=== PATIENT | male | born 1950 | race Asian ===

== ENCOUNTER 2018-11-19 09:21 | Inpatient (IN) | payer MEDICARE, OTHER ==
[~2018-11-19] VITALS: Ht 172.7 cm; Wt 77.1 kg
[2018-11-19 09:40] VITALS: BP 98/61
--- NOTE | 2018-11-19 09:47 | NUR ---
ED Nurse Note: Patient brought in by ambulance from street; Patient admitted to drinking alcohol today. Patient drowsy, but open his eyes when RN called his name. Patient knows his name, , place and year. Patient able to communicate with RN. Regular, unlabored breathing noted. NO SOB or dyspnea noted. Patient has cough with white phlegm. Placed patient on awake overnight monitor. Reports no hx of A-fib. Reports no CP. IV to right AC 18g without redness, swelling or tenderness noted. Patient taken to CT scan. Addendum: 11/19/18 at 0956 by ISAEL ED Nurse Note: Reports no vomiting or BM with any blood or dark colored.
[2018-11-19 10:02] LABS: HEMATOCRIT 39.8 % (42.0-52.0); HEMOGLOBIN 13.5 G/DL (14.2-18.0); MEAN CORPUSCULAR VOLUME 111 FL (80-99); PLATELET COUNT 99 K/UL (150-450); RED BLOOD COUNT 3.57 M/UL (4.70-6.10); RED CELL DISTRIBUTION WIDTH 11.9 % (11.6-14.8)
--- NOTE | 2018-11-19 10:11 | NUR ---
ED Nurse Note: Patient returned from CT scan. Educated patient to use urinal at bedside and call RN using call button if he needs to be OOB. Bed in lowest position. Call light within reach.
--- NOTE | 2018-11-19 10:13 | Diagnostic Imaging Report ---
Indications: Altered mental status Technique: Spiral acquisitions obtained through the brain. Angled axial and coronal 5 x 5 mm slices were reconstructed. Total dose length product 1382.95 mGycm. CTDI vol(s) 70.38 mGy. Dose reduction achieved using automated exposure control Comparison: None. Findings: There is age-related enlargement of the ventricles and extra axial CSF spaces. No acute intracranial hemorrhage or edema. No mass effect or midline shift. Normal hyde-white differentiation. There is inward displacement of the medial orbital dubois bilaterally. This may be developmental or posttraumatic. Visualized orbits are unremarkable. The mastoids are clear Impression: Age-related volume loss Negative for acute intracranial bleed or mass effect The CT scanner at [facility] is accredited by the [employer] and the scans are performed using protocols designed to limit radiation exposure to as low as reasonably achievable to attain images of sufficient resolution adequate for diagnostic evaluation.
[2018-11-19 10:21] LABS: ANION GAP 14 mmol/L (5-15); BLOOD UREA NITROGEN 14 mg/dL (7-18); CALCIUM 8.4 MG/DL (8.5-10.1); CARBON DIOXIDE 25 MMOL/L (21-32); CHLORIDE 106 MMOL/L (98-107); CREATININE 0.8 MG/DL (0.55-1.30); POTASSIUM 3.4 MMOL/L (3.5-5.1); SODIUM 145 MMOL/L (136-145)
[2018-11-19 10:31] LABS: ALANINE AMINOTRANSFERASE 58 U/L (12-78); ALBUMIN 3.2 G/DL (3.4-5.0); ALBUMIN/GLOBULIN RATIO 0.8 (1.0-2.7); ALKALINE PHOSPHATASE 118 U/L (46-116); ASPARTATE AMINO TRANSFERASE 242 U/L (15-37); BILIRUBIN,TOTAL 1.4 MG/DL (0.2-1.0)
[2018-11-19 10:32] LABS: BILIRUBIN,DIRECT 0.6 MG/DL (0.0-0.3)
[2018-11-19 10:56] VITALS: BP 105/71
--- NOTE | 2018-11-19 10:57 | NUR ---
ED Nurse Note: Patient sleeping in bed.
--- NOTE | 2018-11-19 12:00 | NUR ---
ED Nurse Note: ERMD NOTIFIED that patient's HR remains 125 with A-fib after 1L IV fluids. Patient is sleeping in bed. Reports no CP, SOB or dsypnea.
[2018-11-19] MEDS ORDERED: dilTIAZem HCl 25mg/5ml Inj IVP ONE (12:15)
[2018-11-19 13:10] VITALS: BP 94/71
--- NOTE | 2018-11-19 14:00 | NUR ---
ED Nurse Note: Provided sandwiches and juice. Patient tolerated oral intake without difficutly.
--- NOTE | 2018-11-19 14:29 | Emergency Room Report ---
History of Present Illness General Chief Complaint: Altered Level of Consciousness Source: Patient, EMS Present Illness HPI This patient is brought in by EMS from the street. He was intoxicated and altered and EMS was called by a bystander. The patient states he has generalized weakness. He admits to alcohol use. He is begging to stay in the hospital because he does not feel well. He denies chest pain or shortness of breath. He denies abdominal pain. He has no other complaints. Allergies: Coded Allergies: No Known Allergies (Unverified , 11/19/18) Patient History Past Medical History: none, see triage record Social History: Reports: alcohol use - Hx of heavy ETOH; Denies: smoking, drug use Nursing Documentation-[facility] Past Medical History: No Stated History Review of Systems All Other Systems: negative except mentioned in HPI Physical Exam Vital Signs Date Time Temp Pulse Resp B/P (MAP) Pulse Ox O2 Delivery O2 Flow Rate FiO2 11/19/18 09:15 98.6 122 18 98/67 (77) 95 Room Air Sp02 EP Interpretation: reviewed, normal General Appearance: no apparent distress, alert, GCS 15, non-toxic Head: normocephalic, atraumatic Eyes: bilateral eye normal inspection, bilateral eye PERRL ENT: hearing grossly normal, normal pharynx, no angioedema, normal voice Neck: full range of motion, supple/symm/no masses Respiratory: chest non-tender, lungs clear, normal breath sounds, no respiratory distress, no retraction, no accessory muscle use, speaking full sentences Cardiovascular #1: no edema, tachycardia, irregularly irregular Gastrointestinal: normal bowel sounds, non tender, soft, non-distended, no guarding, no rebound Rectal: deferred Musculoskeletal: back normal, gait/station normal, normal range of motion, non- tender Neurologic: alert, oriented x3, responsive, motor strength/tone normal, sensory intact, speech normal Psychiatric: judgement/insight normal, memory normal, mood/affect normal, no suicidal/homicidal ideation Medical Decision Making Diagnostic Impression: Primary Impression: Atrial fibrillation with RVR Additional Impressions: New DX A.FIB Homelessness ETOH abuse EtOH dependence ER Course This patient has a history of alcohol abuse and dependence. He presents intoxicated. He is found to have atrial fibrillation with a rapid ventricular response. He states he has no history of atrial fibrillation, although I suspect this patient does not see any type of physician regularly. Patient was given aggressive IV fluid resuscitation and IV diltiazem. He did have improvement in his A. fib with RVR. He is requesting evaluation by [facility] renal social worker. I feel that given the patient's age and new diagnosis of atrial fibrillation with a rapid ventricular rate that he should be on a rate control medication and also at least be in a fci situation. The patient is admitted for further monitoring of his atrial fibrillation and evaluation by social work. Laboratory Tests Test 11/19/18 09:44 White Blood Count 9.0 K/UL (4.8-10.8) Red Blood Count 3.57 M/UL (4.70-6.10) L Hemoglobin 13.5 G/DL (14.2-18.0) L Hematocrit 39.8 % (42.0-52.0) L Mean Corpuscular Volume 111 FL (80-99) H Mean Corpuscular Hemoglobin 37.9 PG (27.0-31.0) H Mean Corpuscular Hemoglobin Concent 34.0 G/DL (32.0-36.0) Red Cell Distribution Width 11.9 % (11.6-14.8) Platelet Count 99 K/UL (150-450) L Mean Platelet Volume 7.3 FL (6.5-10.1) Neutrophils (%) (Auto) % (45.0-75.0) Lymphocytes (%) (Auto) % (20.0-45.0) Monocytes (%) (Auto) % (1.0-10.0) Eosinophils (%) (Auto) % (0.0-3.0) Basophils (%) (Auto) % (0.0-2.0) Differential Total Cells Counted 100 Neutrophils % (Manual) 52 % (45-75) Lymphocytes % (Manual) 43 % (20-45) Monocytes % (Manual) 5 % (1-10) Eosinophils % (Manual) 0 % (0-3) Basophils % (Manual) 0 % (0-2) Band Neutrophils 0 % (0-8) Platelet Estimate Decreased L Platelet Morphology Normal Macrocytosis 1+ Sodium Level 145 MMOL/L (136-145) Potassium Level 3.4 MMOL/L (3.5-5.1) L Chloride Level 106 MMOL/L (98-107) Carbon Dioxide Level 25 MMOL/L (21-32) Anion Gap 14 mmol/L (5-15) Blood Urea Nitrogen 14 mg/dL (7-18) Creatinine 0.8 MG/DL (0.55-1.30) Estimate Glomerular Filtration Rate > 60 mL/min (>60) Glucose Level 74 MG/DL (74-106) Calcium Level 8.4 MG/DL (8.5-10.1) L Total Bilirubin 1.4 MG/DL (0.2-1.0) H Direct Bilirubin 0.6 MG/DL (0.0-0.3) H Aspartate Amino Transferase (AST) 242 U/L (15-37) H Alanine Aminotransferase (ALT) 58 U/L (12-78) Alkaline Phosphatase 118 U/L (46-116) H Total Protein 7.0 G/DL (6.4-8.2) Albumin 3.2 G/DL (3.4-5.0) L Globulin 3.8 g/dL Albumin/Globulin Ratio 0.8 (1.0-2.7) L Serum Alcohol 340 mg/dL EKG Diagnostic Results Rate: tachycardiac Rhythm: other - A.fib ST Segments: no acute changes Rhythm Strip Diag. Results EP Interpretation: yes Rate: 120's Rhythm: no PVC's, no ectopy, other - A.fib w/RVR CT/MRI/US Diagnostic Results CT/MRI/US Diagnostic Results : Imaging Test Ordered: CT head Impression No acute findings. Specifically no intracranial bleed, mass effect or edema. See official report. Last Vital Signs Date Time Temp Pulse Resp B/P (MAP) Pulse Ox O2 Delivery O2 Flow Rate FiO2 11/19/18 13:10 97.6 94 18 94/71 99 Room Air Status: improved Disposition: ADMITTED INPATIENT Condition: Serious Scripts Unable to Obtain Active Prescriptions or Reported Meds Referrals: NOT CHOSEN IPA/,REFERRING (PCP) Effie Francisco DO Nov 19, 2018 14:29
--- NOTE | 2018-11-19 15:28 | NUR ---
ED Nurse Note: Report given to ROSA MARIA Zhu.
[2018-11-19 15:30] VITALS: BP 98/65
[2018-11-19 17:05] VITALS: BP 100/66
[2018-11-19 17:08] LABS: APPEARANCE,URINE CLEAR; BILIRUBIN, URINE NEGATIVE (NEGATIVE); GLUCOSE, URINE (UA) NEGATIVE (NEGATIVE); KETONES,URINE 3+ (NEGATIVE); LEUKOCYTE ESTERASE ,URINE NEGATIVE (NEGATIVE); NITRITE,URINE NEGATIVE (NEGATIVE); PH,URINE 6 (4.5-8.0); PROTEIN,URINE 2+ (NEGATIVE); UROBILINOGEN,URINE 8 MG/DL (0.0-1.0)
[2018-11-19 17:11] LABS: COLOR,URINE YELLOW
[2018-11-19] MEDS ORDERED: LORazepam 1mg tab ORAL PRN (17:15)
[2018-11-19] MEDS: 1/2NS w/KCl 20mEq 1000ml 1,000 ML IV SCH (17:48)
[2018-11-19 20:00] VITALS: BP 105/65
[2018-11-19] MEDS: Albuterol/Ipratropium 3ml neb HHN SCH (20:03)
--- NOTE | 2018-11-19 20:09 | NUR ---
NURSE NOTES: Mr Troncoso had no co pain when he arrived from ER at 4p today. OOB to walk with assist and steady gait. AOX4 with calm, cooperative affect. Admission protocols inititiated and patient put on bed alarm. Urine and sputum sent to labs. Patient oob to toilet for voiding clear pamela urine and brown, soft bm. Tolerated 25% of dinner and drank multiple juices and water. During sputum collection, projectile vomited 200 mls approx. Bed in lowest , locked position with urinal and call miller in reach. Addendum: 11/19/18 at 2014 by Silviano Celis RN IVF started per MAY. Awaiting iv thiamine and abx from pharm0--endorsed to Jeff. huerta RN
--- NOTE | 2018-11-19 20:10 | NUR ---
NURSE NOTES: Got report from Marko CRANE. Pt in stable condition. Denies any pain. No s/s of distress or discomfort noted. Pt resting in bed comfortably. Bed in low and locked position, call light within reach, bedside table within reach. Continue to monitor.
[2018-11-19] MEDS: Thiamine 100mg tab ORAL SCH (20:25)
[2018-11-19] MEDS: dilTIAZem HCl 60mg tab ORAL SCH ×2 (20:25→21:43)
[2018-11-19] MEDS: MULTIVITAMIN IV SCH (20:26)
[2018-11-19] MEDS: MAGNESIUM SULFATE IV SCH (20:26)
[2018-11-19] MEDS: FOLIC ACID IV SCH (20:26)
[2018-11-19] MEDS: [UNRECOGNIZED DRUG - OTHER] IV SCH (20:26)
[2018-11-19] MEDS: cefTRIAXone 1 GM in D5W 55 ML IVPB SCH (20:28)
[2018-11-20] VITALS: BP 106/61
[2018-11-20] MEDS: Albuterol/Ipratropium 3ml neb HHN SCH ×4 (01:27→20:33)
[2018-11-20] MEDS: 1/2NS w/KCl 20mEq 1000ml 1,000 ML IV SCH ×2 (03:12→13:34)
[2018-11-20 04:00] VITALS: BP 100/61
[2018-11-20] MEDS: dilTIAZem HCl 60mg tab ORAL SCH ×3 (05:35→22:03)
[2018-11-20 06:00] LABS: HEMATOCRIT 33.5 % (42.0-52.0); HEMOGLOBIN 11.6 G/DL (14.2-18.0); MEAN CORPUSCULAR VOLUME 109 FL (80-99); PLATELET COUNT 86 K/UL (150-450); RED BLOOD COUNT 3.07 M/UL (4.70-6.10); WHITE BLOOD COUNT 10.6 K/UL (4.8-10.8)
[2018-11-20 06:27] LABS: ALANINE AMINOTRANSFERASE 50 U/L (12-78); ALBUMIN 2.8 G/DL (3.4-5.0); ALBUMIN/GLOBULIN RATIO 0.9 (1.0-2.7); ALKALINE PHOSPHATASE 107 U/L (46-116); ANION GAP 9 mmol/L (5-15); ASPARTATE AMINO TRANSFERASE 173 U/L (15-37); BILIRUBIN,TOTAL 2.2 MG/DL (0.2-1.0); BLOOD UREA NITROGEN 12 mg/dL (7-18); CALCIUM 8.1 MG/DL (8.5-10.1); CARBON DIOXIDE 24 MMOL/L (21-32); CHLORIDE 104 MMOL/L (98-107); CREATININE 0.8 MG/DL (0.55-1.30); POTASSIUM 4.4 MMOL/L (3.5-5.1); SODIUM 137 MMOL/L (136-145)
[2018-11-20 06:40] LABS: BILIRUBIN,DIRECT 0.7 MG/DL (0.0-0.3)
--- NOTE | 2018-11-20 07:00 | NUR ---
HAND-OFF: Report given to Felicita CRANE. Endorsed plan of care.
--- NOTE | 2018-11-20 07:41 | NUR ---
NURSE NOTES: Received report from ROSA MARIA Maurer. Pt is receiving a breathing treatment. No distress noted. Bed is in lowest position, side rails up X2, and call light is within reach. Will continue to monitor.
[2018-11-20 08:00] VITALS: BP 98/57
[2018-11-20] MEDS: Thiamine 100mg tab ORAL SCH (08:46)
--- NOTE | 2018-11-20 10:50 | NUR ---
RD ASSESSMENT & RECOMMENDATIONS SEE CARE ACTIVITY FOR COMPLETE ASSESSMENT DAILY ESTIMATED NEEDS: Needs based on possible wt loss, liver dysfunction, cardiac/ 58.2kg 25-30 kcals/kg 5721-7769 total kcals 1-1.5 g protein/kg 58-87 g total protein 25-30 mL/kg 7887-6705 total fluid mLs NUTRITION DIAGNOSIS: * Increased kcal/prot intake needs R/T wt loss as evidenced by possible weight loss of 32lbs/20% in the last year, pt is 81% of UBW, 86% IBW. * Altered nutrition related lab values R/T ETOH abuse as evidenced by serum alcohol of 340 upon adm, elev T bili (2.2), elev AST. CURRENT DIET:REGULAR PO DIET RECOMMENDATIONS: LOW NA ADDITIONAL RECOMMENDATIONS: * Standing wt for accurate CBW -> weekly wt monitoring given wt loss * Snacks BID in b/w meals * Monitor liver fxn * Monitor lytes, replete as needed
[2018-11-20 12:00] VITALS: BP 92/56
[2018-11-20 16:00] VITALS: BP 107/73
[2018-11-20] MEDS: cefTRIAXone 1 GM in D5W 55 ML IVPB SCH (17:18)
[2018-11-20] MEDS: MAGNESIUM SULFATE IV SCH (17:59)
[2018-11-20] MEDS: MULTIVITAMIN IV SCH (17:59)
[2018-11-20] MEDS: FOLIC ACID IV SCH (17:59)
[2018-11-20] MEDS: [UNRECOGNIZED DRUG - OTHER] IV SCH (17:59)
--- NOTE | 2018-11-20 19:32 | NUR ---
HAND-OFF: Report given to ROSA MARIA Joyner. Plan of care endorsed
--- NOTE | 2018-11-20 19:33 | NUR ---
NURSE NOTES: Received pt from ROSA MARIA Mims. Pt is awake and resting in bed in no acute distress, tolerating room air. Iv site intact and patent. Bed locked in lowest position, call light with reach. Pt has bathroom privileges. Will continue with plan of care.
[2018-11-20 20:00] VITALS: BP 106/68
[2018-11-21] VITALS: BP 92/62
[2018-11-21] MEDS: Albuterol/Ipratropium 3ml neb HHN SCH ×2 (01:20→06:32)
--- NOTE | 2018-11-21 02:00 | History and Physical Report ---
DATE OF ADMISSION: 11/19/2018 REASON FOR ADMISSION: Rapid atrial fibrillation, hypotension, and alcohol intoxication. HISTORY OF PRESENT ILLNESS: This is a 68-year-old male, who resides in a assisted. He admits to moderate use of alcohol on a regular basis. He was found intoxicated and altered by a bystander who called paramedics. The patient has been weak, complaining of nausea and palpitations. No chest pain or shortness of breath. PAST MEDICAL HISTORY: Otherwise unknown. He denies known history of cardiovascular disease. MEDICATIONS: None. ALLERGIES: None known. SOCIAL HISTORY: Alcohol heavy use. Occasional smoker. No substance abuse. FAMILY HISTORY: Noncontributory. REVIEW OF SYSTEMS: He notes cough and congestion with some sputum production over the past few days. No fever or chills. No leg swelling. No history of positive PPD. No history of heart attack. No change in bowel habits. No history of prostate cancer or difficulty voiding. No known history of diabetes or thyroid impairment. No history of seizures or stroke. PHYSICAL EXAMINATION: VITAL SIGNS: Blood pressure 98/67, pulse 122, respiratory rate 18, afebrile, and room air oxygen saturation 95%. HEENT: Conjunctivae pink. Sclerae are anicteric. Oropharynx clear. NECK: Supple. Jugular venous pressure normal. LUNGS: Coarse breath sounds and rhonchi. No wheezing. CARDIAC: Irregularly irregular rhythm. Rapid rate. Normal S1 and S2 with no murmur, rub, or gallop. ABDOMEN: Soft and nontender. No ascites. No hepatomegaly. EXTREMITIES: Good pulses. No edema. NEUROLOGIC: Nonfocal. LABORATORY DATA: White count 9 and hemoglobin 13.5. EKG revealed atrial fibrillation with rapid ventricular response and nonspecific ST-T wave change. Sodium 145, potassium 3.4, BUN 14, creatinine 0.8, and bicarbonate 25. Liver function within normal limits. Alcohol level 340. Chest x-ray with no acute process. CT scan of the brain, no acute process. IMPRESSION: 1. Paroxysmal atrial fibrillation with rapid ventricular response. 2. Alcohol intoxication. 3. Alcoholism. 4. Homelessness. 5. Acute bronchitis with probable chronic obstructive pulmonary disease. 6. Hypokalemia. 7. Hypovolemia. 8. Mild hypotension secondary to above. PLAN: 1. Hydration. 2. Potassium replacement. 3. Cardiac monitoring. 4. Check magnesium. 5. Vitamin supplementation. 6. Withdrawal precautions. 7. Beta-blockade. 8. Hold anticoagulation. 9. Inhaled bronchodilators. 10. Empiric antibiotics. 11. Sputum culture. 12. Social service consult. 13. Cardiac monitoring. 14. Inpatient stay. Ajit Crow M.D. DR: DOLORES JOB#: [id number] CC:
--- NOTE | 2018-11-21 02:15 | Progress Note ---
DATE: 11/20/2018 CARDIOLOGY PROGRESS NOTE SUBJECTIVE: The patient has no new complaints. Feels better. He has not had any withdrawal symptoms from alcohol. He has had atrial fibrillation overnight. This morning, he had a short episode of bradycardia with a pause that was asymptomatic and resulted in resumption of sinus rhythm. OBJECTIVE: VITAL SIGNS: Blood pressure 92/56, pulse 81, respiratory rate 16, afebrile, and oxygen saturation on room air 96%. NECK: Jugular venous pressure normal. Few rhonchi. HEART: Regular rhythm and rate. Normal S1 and S2. ABDOMEN: Soft. EXTREMITIES: No edema. LABORATORY DATA: Echocardiogram reviewed. Ejection fraction is normal. There is minimal regurgitation and no pulmonary hypertension. Labs - white count 10.6 and hemoglobin 11.6. Potassium 4.4, BUN 12, and creatinine 0.8. TSH 6.9. B12 and folate elevated. IMPRESSION: 1. Paroxysmal atrial fibrillation. 2. Alcohol intoxication. 3. Alcohol abuse. 4. Homelessness. 5. Alcoholic liver disease. 6. Borderline hypothyroid state. 7. B12 and folate levels may be inaccurate as drawn from intravenous line. 8. Chronic obstructive pulmonary disease with bronchospasm and acute bronchitis. PLAN: 1. Continue beta-anna. 2. Consider thyroid replacement. 3. Repeat lab studies, namely metabolic profile. 4. Continue hydration. 5. Respiratory hygiene. 6. Empiric antimicrobials. Ajit Crow M.D. DR: DOLORES JOB#: [id number] CC:
[2018-11-21] MEDS: 1/2NS w/KCl 20mEq 1000ml 1,000 ML IV SCH ×2 (02:53→09:00)
[2018-11-21 04:00] VITALS: BP 92/60
[2018-11-21] MEDS: dilTIAZem HCl 60mg tab ORAL SCH (06:07)
--- NOTE | 2018-11-21 07:25 | NUR ---
NURSE NOTES: Report received from ROSA MARIA Rodríguez. Patient AOx4. In RA. Having breakfast. Denies any pain or SOB. IV site intact, running fluid per order. Bed on lowest position, side rails upx4, brakes engaged. Call light within easy reach.
--- NOTE | 2018-11-21 07:29 | NUR ---
HAND-OFF: Report given to ROSA MARIA Handley. Endorsed plan of care.
[2018-11-21 08:00] VITALS: BP 109/71
[2018-11-21] MEDS: Thiamine 100mg tab ORAL SCH (08:54)
--- NOTE | 2018-11-21 09:48 | Diagnostic Imaging Report ---
EXAM: XR Chest, 2 Views CLINICAL HISTORY: COPD TECHNIQUE: Frontal and lateral views of the chest. COMPARISON: No relevant prior studies available. FINDINGS: Lungs: Hyperinflated lungs, COPD. Interstitial and vascular prominence, May be mild interstitial edema or pneumonitis superimposed on chronic changes. Pleural space: Unremarkable. No pneumothorax. Heart: Mild cardiomegaly. Mediastinum: Prominent mediastinum may be projectional. Bones/joints: Unremarkable. IMPRESSION: 1. Hyperinflated lungs, COPD. 2. Interstitial and vascular prominence, May be mild interstitial edema or pneumonitis superimposed on chronic changes. 3. Mild cardiomegaly. 4. Prominent mediastinum may be projectional.
--- NOTE | 2018-11-21 12:31 | Cardiology Report ---
APPROVED REPORT EXAM: Two-dimensional and M-mode echocardiogram with Doppler and color Doppler. INDICATION A-FLUTTER M-Mode DIMENSIONS IVSd0.7 (0.7-1.1cm)Left Atrium (MM)2.2 (1.6-4.0cm) LVDd5.1 (3.5-5.6cm)Aortic Root3.9 (2.0-3.7cm) PWd0.8 (0.7-1.1cm)Aortic Cusp Exc.1.8 (1.5-2.0cm) IVSs1.4 cm LVDs3.4 (2.5-4.0cm) PWs1.1 cm Normal left ventricular chamber size, systolic function and wall motion . Left ventricular ejection fraction estimated to be 65%. No evidence left ventricular hypertrophy. No pericardial effusion. All other cardiac chamber sizes are within normal limits. Aortic valve calcification with normal cusp excursion . Mildly thickened mitral valve leaflets with normal excursion. Mild mitral annulus and aortic root calcification. Pulmonic valve not well visualized. IVC at normal size with physiologic collapse . A color flow and spectral Doppler study was performed and revealed: Trace aortic insufficiency . Mitral inflow indicates normal left ventricular diastolic function. Trace mitral regurgitation. Trace tricuspid regurgitation. Tricuspid systolic velocities suggests peak right ventricular systolic pressure of 16mmHg.
--- NOTE | 2018-11-21 12:59 | Cardiology Report ---
APPROVED REPORT EKG Measurement Heart [id number] Atrial fibrillation with rapid ventricular response Abnormal ECG
--- NOTE | 2018-11-22 12:01 | Discharge Summary ---
Discharge Summary Discharge Summary _ DATE OF ADMISSION: 11/19/2018 DATE OF DISCHARGE: 11/21/2018 Patient eloped REASON FOR ADMISSION: 68 years old male with past medical history of using alcohol on a regular basis , who lives in senior care, was found intoxicated and altered by bystander , who called paramedics. Patient reported generalized weakness. Upon evaluation , patient was tachycardic with heart rate 122, blood pressure 98/67 , pulse oximetry was stable on room air , patient was afebrile. EKG revealed atrial fibrillation with rapid ventricular response. Patient appeared to be intoxicated. Serum alcohol level 340. Electrolytes were stable , except potassium -3.4. Total bilirubin 1.4, direct bilirubin 0.6. AST 242, ALT 58. Albumin 3.2. No leukocytosis. Hemoglobin 13.5 , hematocrit 39.8. Platelet count 99 . Urinalysis revealed +2 protein , but no evidence for UTI. CT of the head demonstrated no acute intracranial pathology. Age-related volume loss was noted. In the emergency department patient started on aggressive IV hydration and IV Cardizem. Patient had improvement in the heart rate. Patient admitted to telemetry floor for further management. HOSPITAL COURSE: Patient admitted to telemetry floor and started on the IV fluid with multivitamins , folate , magnesium and thiamine/banana bag. Ativan was on board as needed . Blood pressure was closely monitored and stabilized with volume replacement. Overnight he spontaneously converted to sinus rhythm. Echocardiogram revealed preserved ejection fraction of 65% with no evidence of left ventricular hypertrophy. No evidence of wall motion abnormality. Right ventricular systolic pressure of 16. Chest x-ray revealed hyperinflated lungs and COPD with interstitial and vascular prominence. Supplemental oxygen provided as needed to keep pulse oximetry above 92%. Pulmonary toilet via hand held nebulizing treatment with bronchodilator provided as needed. Patient started on empiric antibiotic. Pulse oximetry was stable on room air. Potassium was replaced. Patient noted to have elevated TSH and was planned to start on Synthroid supplement. Mental status improved, patietn awake, alert and oriented. On 11/21 patient eloped. FINAL DIAGNOSES: Atrial fibrillation with rapid ventricular response -resolved Paroxysmal atrial fibrillation Alcohol intoxication Alcohol abuse Homelessness Alcoholic liver disease Borderline hypothyroid state COPD with bronchospasm and acute bronchitis Hypokalemia -resolved Hypovolemia- resolved I have been assigned to dictate discharge summary for this account. I was not involved in the patient's management. Renu Monterroso NP Nov 22, 2018 12:01
== END 2018-11-21 09:45 | disposition left against medical advice (07) | DRG 309 ==
LOC: EDBD 09:21 → EMR 09:52 → EDBEDREQ 12:24 → 2E 14:57
DX: I48.0 Paroxysmal atrial fibrillation (principal); J44.0 Chronic obstructive pulmonary disease with (acute) lower respiratory infection; F10.129 Alcohol abuse with intoxication, unspecified; Z59.0 Homelessness; J20.9 Acute bronchitis, unspecified; E87.6 Hypokalemia; E86.1 Hypovolemia; K70.9 Alcoholic liver disease, unspecified
CPT/HCPCS: 36415; 70450; 71045; 80053; 80307; 80329; 81003; 82248; 82607; 82746; 82962; 83735; 84443; 85007; 85025; 87070; 87081; 87205; 93005; 93306; 94640; 96361; 96374; 99285; J7620